=== PATIENT | female | born 1955 | race Caucasian/White ===

== ENCOUNTER 2016-03-18 05:58 | Day surgery (SDC) | payer OTHER ==
[2016-03-18] VITALS (16 sets, daily range): BP systolic 93–134; BP diastolic 52–81; PULSE 60–86; RESP 14–23; Wt 64.6 kg
[2016-03-18] MEDS ORDERED: CEFAZOLIN 1 GM/50 ML (PMX) 50 ML IVPB ONE (06:31)
[2016-03-18] MEDS ORDERED: IMIT25 PO (07:18)
[2016-03-18] MEDS ORDERED: PROPOFOL 100 ML ONE (07:21)
[2016-03-18] MEDS ORDERED: CEFAZOLIN 1 GM INJ ONE (07:22)
[2016-03-18] MEDS ORDERED: MIDAZOLAM 1 MG/ML 2 ML INJ ONE (07:25)
[2016-03-18] MEDS ORDERED: LIDOCAINE 2% (SDV) 5 ML INJ ONE (07:25)
[2016-03-18] MEDS ORDERED: FENTAnyl 50 MCG/ML VIAL ONE (07:25)
[2016-03-18] MEDS ORDERED: DEXAMETHASONE 4 MG/ML 1 ML INJ ONE ×2 (07:30→07:32)
[2016-03-18] MEDS ORDERED: BUPIVACAINE 0.5% (SDV) 30 ML INJ ONE (07:32)
[2016-03-18] MEDS ORDERED: LIDOCAINE 1% (MPF) 30 ML INJ ONE (07:32)
[2016-03-18] MEDS ORDERED: MEPERIDINE 25 MG INJ IV PRN (08:30)
[2016-03-18] MEDS ORDERED: LABETALOL HCL 20MG INJ IV PRN (08:30)
[2016-03-18] MEDS ORDERED: ONDANSETRON 4 MG INJ IV PRN (08:30)
[2016-03-18] MEDS ORDERED: OXYCODONE/ACETAMINOPHEN (5/325) TAB PO PRN ×2 (08:30)
[2016-03-18] MEDS ORDERED: FENTAnyl 50 MCG/ML VIAL IV PRN ×3 (08:30)
[2016-03-18] MEDS ORDERED: HYDROmorphONE (0.2 MG/ML) 10ML SYG IV PRN ×3 (08:30)
--- NOTE | 2016-03-18 11:26 | OPR ---
DATE OF OPERATION: 03/18/2016 PREOPERATIVE DIAGNOSIS: Soft tissue mass, plantar aspect of the left foot. POSTOPERATIVE DIAGNOSIS: Soft tissue mass, plantar aspect of the left foot. PROCEDURE: Removal of soft tissue mass and partial plantar fascia release, left foot. DESCRIPTION OF PROCEDURE: Patient was brought to the OR and placed in the supine position. Anesthe vania was achieved using MAC and local for 17 mL of lidocaine 1% plain. Ankle was then wrapped severa l times with Webril, and tourniquet was placed over the Webril. Next, the foot was prepped and drap ed in the usual sterile fashion and tourniquet was inflated to 250 mmHg. Attention was directed to the plantar aspect of the left foot. A 2 cm linear incision was made plan tar aspect of the left foot medial to plantar fascia band. The incision was deepened using same ryan ne using sharp and blunt dissection. A soft tissue mass was identified and resected in toto. A par tial plantar fascia release was done medially. The area was then flushed with copious amounts of no rmal saline. Then, subcutaneous closure was obtained using 4- 0 Vicryl and skin closure using 4-0 n ylon in a simple interrupted fashion. A surgical site was then infiltrated with 5 mL 0.5% Marcaine plain and 1 mL of dexamethasone phosphate. The surgical site was then covered with Adaptic, 4 x 4s and Kerlix in a compressive fashion. The patient tolerated anesthesia and procedure well. The tour niquet was deflated and immediate capillary refill was observed to all digits of the left foot. The patient left the OR for recovery room with vital signs stable and neurovascular status intact. Wri tten and oral postop instructions were given to the patient. Will follow up with the patient in 2 t o 3 days at the office. Dictated By: AMERICA RODRIGUEZ/BRANDEE Conf#: [id number] DID#: [id number]
--- NOTE | 2016-03-18 13:41 | RADRPT ---
Vent Rate: 77 bpm RR Interval: 0 msec VT Interval: 150 msec QRS Duration: 90 msec QT Interval: 416 msec QTC Interval: 470 msec P-R-T [place]: 22 - -2 - 28 degrees Normal sinus rhythm Normal ECG Electronically Signed By: Lionel Marsh [id number]
== END 2016-03-18 11:05 | disposition home or self-care (01) ==
LOC: SDS 05:58
PROVIDERS: ATTEND Podiatrist
DX: M72.2 Plantar fascial fibromatosis (principal)
CPT/HCPCS: 28008; 88307; 93005; J0690; J1100; J2250; J3010; Z7512; Z7610

== ENCOUNTER 2016-11-01 07:06 | Day surgery (SDC) | payer OTHER ==
[~2016-11-01] VITALS: Ht 157.5 cm; Wt 65.9 kg
[~2016-11-01 07:06] MED LIST: IMIT25 PO
[2016-11-01 08:10] VITALS: Ht 157.5 cm; Wt 65.9 kg
[2016-11-01] MEDS ORDERED: CA C1TAB60 PO (08:23)
[2016-11-01 08:31] VITALS: BP 120/76; PULSE 65; RESP 15
[2016-11-01] MEDS ORDERED: FENTAnyl 50 MCG/ML VIAL ONE (09:55)
[2016-11-01] MEDS ORDERED: MIDAZOLAM 1 MG/ML 2 ML INJ ONE ×3 (09:55)
--- NOTE | 2016-11-01 09:56 | OPPN ---
Date/Time of Note Date/Time of Note DATE: 11/01/16 TIME: 09:54 Operative Report Preoperative Diagnosis Screening colonoscopy Postoperative Diagnosis Redundant colon Incomplete colonoscopy Angiodysplastic lesions in the colon Internal hemorrhoids Operation/Procedure Performed Colonoscopy Provider: JAMES AGUILAR MD Anesthesia Type: moderate sedation Estimated blood loss: none Transfusion Required: no Specimen: none Grafts/Implants: none Complications: no JAMES AGUILAR MD Nov 01, 2016 09:56
--- NOTE | 2016-11-01 10:18 | GILP ---
DATE OF PROCEDURE: PROCEDURE PERFORMED: Colonoscopy. SURGEON: Aida Judd MD PREOPERATIVE DIAGNOSIS: Screening colonoscopy. PREOPERATIVE DIAGNOSIS: 1. Internal colon and cecum could not reached. 2. Angiodysplastic lesions in the colon. 3. Internal hemorrhoids. INDICATION: Ms. Snider is a 61-year-old female patient who was scheduled for screening colonoscopy. The procedure and possible complications were well explained to the patient. She understood and consented to the procedure. DESCRIPTION OF PROCEDURE: Under the influence of fentanyl and Versed, the colonoscope was carefully introduced into the rectum and the patient had a redundant colon and it was difficult to pass the colonoscope, so the scope was withdrawn. An upper endoscope was carefully inserted into the rectum and it was advanced to the full lens of the scope. The patient had a redundant colon and the cecum could not be reached. The patient was noted to have angiodysplastic lesions in the colon. She also had internal hemorrhoids. She tolerated the procedure very well. There was no complications from the procedure. At the end of procedure she was awake with stable vital signs and she was discharged home in care of her family. IMPRESSION: 1. Redundant colon and cecum could not be reached. 2. Angiodysplastic lesions in the colon. 3. Internal hemorrhoids. PLAN: The patient will need a barium enema for evaluation of the proximal part of the colon. The patient was given a prescription for the barium enema and authorization will be obtained for the exam. Dictated By: MD MARTINA Haley/[email or web address] /Document#: [id number]
[2016-11-01 10:25] VITALS: BP 106/66; RESP 20
== END 2016-11-01 10:19 | disposition home or self-care (01) ==
LOC: GIL 07:06
PROVIDERS: ATTEND Internal Medicine Gastroenterology
DX: Z12.11 Encounter for screening for malignant neoplasm of colon (principal); K55.20 Angiodysplasia of colon without hemorrhage; K64.8 Other hemorrhoids
CPT/HCPCS: 45378; J2250; J3010; Z7610

== ENCOUNTER 2017-07-21 20:34 | Emergency (ER) | END 2017-07-22 00:36 | disposition home or self-care (01) ==

== ENCOUNTER → 2017-09-26 | Outpatient (CLI) | END | disposition home or self-care (01) ==

== ENCOUNTER → 2017-10-24 | Outpatient (CLI) | END | disposition home or self-care (01) ==

== ENCOUNTER → 2017-12-12 | Outpatient (CLI) | END | disposition home or self-care (01) ==

== ENCOUNTER → 2018-01-23 | Outpatient (CLI) | END | disposition home or self-care (01) ==